=== PATIENT | female | born 1955 | race Caucasian/White ===

== ENCOUNTER 2017-05-31 21:49 | Inpatient (IN) | payer OTHER ==
[~2017-05-31] VITALS: Ht 152.4 cm; Wt 62.6 kg
--- NOTE | ~2017-05-31 | EKG ---
[address] [place] [address] ELECTROCARDIOGRAM REPORT Name: CHARLIE FERMIN Room #: 409-P ADM IN M.R.#: [id number] Admission: 06/01/17 Attend Phys: Virgilio Shepherd MD Discharge: Date of : 51 Report #: [id number] THIS REPORT FOR: //name// [facility] ED Test Date: 2017-05-31 Test Time: 22:56:05 Pat Name: CHARLIE FERMIN Department: Room: 409 Gender: F Composing Room Supervisor: ELSIE : 1955 Requested By: Shaye Granado Order Number: [id number] MD: Chris Morales Measurements Intervals [place] Rate: 77 P: 78 [place]: 165 QRS: -13 QRSD: 111 T: 3 QT: 408 QTc: 462 Interpretive Statements Sinus rhythm Low voltage, precordial leads Probable anteroseptal infarct, old Compared to ECG 05/14/2012 09:56:40 Septal Q waves are now present Sinus bradycardia no longer present Electronically Signed On 06-01-2017 7:55:03 CDT by Chris Morales [email or web address] <ELECTRONICALLY SIGNED> By: Chris Morales MD, [facility] 06/01/17 [id number] Chris Morales MD, [facility] /EPI
[~2017-05-31 21:49] MED LIST: IBUPROFEN 800800 M1 PO; LORTAB 5 MG/5001 TA1 PO; SENNA PO; TRAMADOL-ACETA1 EACH PO
[2017-05-31 21:53] VITALS: BP 105/75
[2017-05-31 22:26] LABS: ABSOLUTE NEUTROPHILS 5.4 thou/uL (1.4-8.2); BASOPHILS 0.2 % (0.0-2.0); EOSINOPHILS 0.1 % (0.0-3.0); HEMATOCRIT 43.5 % (37.0-47.0); HEMOGLOBIN 14.8 gm/dL (12.0-15.0); LYMPHOCYTES 22.7 % (24.0-44.0); MCH 30.4 pg (26.0-34.0); MCHC 34.1 g/dL (28.0-37.0); MCV 89.2 fL (80.0-100.0); MONOCYTES 9.4 % (1.0-8.0); PLATELET COUNT 271 thou/uL (150-400); POLYS 67.6 % (36.0-66.0); RBC 4.88 mil/uL (4.20-5.00); RDW 13.6 % (10.5-14.5); URINE BILIRUBIN 2+ (Negative); URINE BLOOD 2+ (Negative); URINE CLARITY SL CLOUDY; URINE COLOR YELLOW; URINE GLUCOSE-RANDOM* NEGATIVE (Negative); URINE KETONES 3+ (Negative); URINE LEUKOCYTES NEGATIVE (Negative); URINE NITRITE NEGATIVE (Negative); URINE PROTEIN (DIPSTICK) 2+ (Negative); URINE SPECIFIC GRAVITY >= 1.030 (1.005-1.035)
[2017-05-31 22:36] LABS: ICTOTEST (BILI CONFIRMATORY) Positive (Negative)
[2017-05-31 22:39] LABS: HYALINE CASTS 0-3 Few /LPF (None Seen); MUCUS 0-3 Light strn/LPF (None Seen); SQUAMOUS 0-3 Few /LPF (0-3); URINE RBC None Seen /HPF (0-2); URINE WBC None Seen /HPF (0-5)
[2017-05-31 22:40] LABS: BACTERIA None Seen /HPF (None Seen); CRYSTALS None Seen /LPF (None Seen)
[2017-05-31 22:48] LABS: ANION GAP 12 mmol/L (7-16); BUN 14 mg/dL (7-18); CALCIUM 9.2 mg/dL (8.5-10.1); CHLORIDE 98 mmol/L (98-107); CO2 24 mmol/L (21-32); CREATININE 0.8 mg/dL (0.6-1.0); GLUCOSE 116 mg/dL (74-106); POTASSIUM 3.3 mmol/L (3.5-5.1); SODIUM 134 mmol/L (136-145)
[2017-05-31 22:57] LABS: ALBUMIN 3.7 g/dL (3.4-5.0); DIRECT BILIRUBIN 0.2 mg/dL (<0.1-0.3); LIPASE 111 U/L (73-393); SGOT 50 U/L (15-37); SGPT 48 U/L (30-65); TOTAL BILIRUBIN 0.7 mg/dL (<0.1-1.0); TOTAL PROTEIN 8.3 g/dL (6.4-8.2); TROPONIN-I < 0.04 ng/mL (<0.06)
[2017-06-01] MEDS ORDERED: ZOFRAN ODT4 MG PO (00:06)
[2017-06-01] MEDS ORDERED: PHENERGAN 25 MG25 M1 PO (00:06)
[2017-06-01 00:53] VITALS: BP 116/62
[2017-06-01 01:15] VITALS: BP 129/67
[2017-06-01 04:00] VITALS: BP 115/71
[2017-06-01 09:03] LABS: HEMOGLOBIN 13.5 gm/dL (12.0-15.0); MCH 30.3 pg (26.0-34.0); MCHC 33.6 g/dL (28.0-37.0); RBC 4.45 mil/uL (4.20-5.00); RDW 13.2 % (10.5-14.5); WBC 7.2 thou/uL (4.0-11.0)
[2017-06-01 09:12] LABS: CALCIUM 8.6 mg/dL (8.5-10.1); CREATININE 0.7 mg/dL (0.6-1.0); MAGNESIUM 1.9 mg/dL (1.8-2.4); POTASSIUM 3.3 mmol/L (3.5-5.1)
[2017-06-01 09:30] VITALS: BP 107/58
[2017-06-01 14:50] VITALS: BP 99/44
[2017-06-01 20:00] VITALS: BP 110/50
[2017-06-02] VITALS: BP 107/54
[2017-06-02 04:00] VITALS: BP 105/69; BP 112/72
[2017-06-02 06:18] LABS: HEMATOCRIT 34.6 % (37.0-47.0); HEMOGLOBIN 11.7 gm/dL (12.0-15.0); MCH 30.3 pg (26.0-34.0); MCHC 33.9 g/dL (28.0-37.0); MCV 89.5 fL (80.0-100.0); RBC 3.87 mil/uL (4.20-5.00); RDW 13.4 % (10.5-14.5); WBC 8.5 thou/uL (4.0-11.0)
[2017-06-02 06:36] LABS: CALCIUM 7.8 mg/dL (8.5-10.1); CREATININE 0.7 mg/dL (0.6-1.0); POTASSIUM 3.3 mmol/L (3.5-5.1)
[2017-06-02 08:00] VITALS: BP 103/53
[2017-06-02 09:00] VITALS: BP 95/51
[2017-06-02 09:34] VITALS: BP 103/53
[2017-06-02 20:08] VITALS: BP 112/60
[2017-06-03 06:30] LABS: HEMATOCRIT 31.9 % (37.0-47.0); HEMOGLOBIN 11.1 gm/dL (12.0-15.0); MCH 30.9 pg (26.0-34.0); MCHC 34.8 g/dL (28.0-37.0); MCV 88.7 fL (80.0-100.0); RBC 3.59 mil/uL (4.20-5.00); RDW 13.6 % (10.5-14.5); WBC 8.3 thou/uL (4.0-11.0)
[2017-06-03 06:48] LABS: CALCIUM 8.3 mg/dL (8.5-10.1); CREATININE 0.7 mg/dL (0.6-1.0)
[2017-06-03 07:30] VITALS: BP 113/64
[2017-06-03] MEDS ORDERED: MUCINEX600 MG PO (09:44)
[2017-06-03] MEDS ORDERED: ONDANSETRON HCL4 M2 PO (09:45)
[2017-06-03] MEDS ORDERED: CEFDINIR300 MG PO (09:45)
[2017-06-03 10:40] VITALS: BP 113/64
[2017-06-04 00:07] LABS: ADENOVIRUS Negative (Negative); INFLUENZA A Negative (Negative); INFLUENZA B Positive (Negative); METAPNEUMOVIRUS Negative (Negative); PARAINFLUENZA 1 Negative (Negative); PARAINFLUENZA 2 Negative (Negative); PARAINFLUENZA 3 Negative (Negative); RHINOVIRUS Negative (Negative); RSV A Negative (Negative); RSV B Negative (Negative)
== END 2017-06-03 11:29 | disposition home or self-care (01) | DRG 391 ==
LOC: ER 21:49 → SICU 06-01 00:27 → EROBS 06-01 00:27 → 4N 06-01 00:55 → SICU 06-02 09:42
PROVIDERS: Emergency Medicine; Hospitalist; Nurse Practitioner Acute Care
DX: K52.9 Noninfective gastroenteritis and colitis, unspecified (principal); J18.9 Pneumonia, unspecified organism; F17.200 Nicotine dependence, unspecified, uncomplicated; E87.6 Hypokalemia; Z88.5 Allergy status to narcotic agent; Z79.1 Long term (current) use of non-steroidal anti-inflammatories (NSAID)
CPT/HCPCS: 10091; 15002

== ENCOUNTER 2018-10-26 19:19 | Emergency (ER) | payer OTHER ==
[~2018-10-26] VITALS: Ht 154.9 cm; Wt 63.5 kg
[~2018-10-26 19:19] MED LIST changes: +CEFDINIR300 MG PO; +MUCINEX600 MG PO; +ONDANSETRON HCL4 M2 PO; +PHENERGAN 25 MG25 M1 PO; +ZOFRAN ODT4 MG PO
[2018-10-26 19:54] LABS: ABSOLUTE NEUTROPHILS 10.5 thou/uL (1.4-8.2); BASOPHILS 0.2 % (0.0-2.0); EOSINOPHILS 0.3 % (0.0-3.0); HEMATOCRIT 43.5 % (37.0-47.0); HEMOGLOBIN 14.8 gm/dL (12.0-15.0); LYMPHOCYTES 11.6 % (24.0-44.0); MCH 30.8 pg (26.0-34.0); MCHC 34.1 g/dL (28.0-37.0); MCV 90.4 fL (80.0-100.0); MONOCYTES 8.8 % (1.0-8.0); PLATELET COUNT 313 thou/uL (150-400); POLYS 79.1 % (36.0-66.0); RBC 4.81 mil/uL (4.20-5.00); RDW 13.7 % (10.5-14.5); WBC 13.3 thou/uL (4.0-11.0)
[2018-10-26 19:59] LABS: CALCIUM 9.5 mg/dL (8.5-10.1); POTASSIUM 3.4 mmol/L (3.5-5.1)
[2018-10-26 20:06] LABS: DIRECT BILIRUBIN 0.1 mg/dL (<0.1-0.3); TOTAL BILIRUBIN 0.9 mg/dL (<0.1-1.0); TOTAL PROTEIN 7.9 g/dL (6.4-8.2)
[2018-10-26 22:30] LABS: URINE BILIRUBIN 1+ (Negative); URINE BLOOD TRACE (Negative); URINE CLARITY SL CLOUDY; URINE COLOR YELLOW; URINE GLUCOSE-RANDOM* NEGATIVE (Negative); URINE KETONES 1+ (Negative); URINE LEUKOCYTES-REFLEX NEGATIVE (Negative); URINE NITRITE-REFLEX NEGATIVE (Negative); URINE PROTEIN (DIPSTICK) NEGATIVE (Negative); URINE SPECIFIC GRAVITY >= 1.030 (1.005-1.035); URINE UROBILINOGEN 0.2 E.U./dl (0.2-1.0)
[2018-10-26] MEDS ORDERED: BENTYL 20 MG TA20 M1 PO (23:55)
[2018-10-26] MEDS ORDERED: ZOFRAN4 MG PO (23:55)
[2018-10-27 00:10] VITALS: BP 106/58
== END 2018-10-27 00:10 | disposition home or self-care (01) ==
LOC: ER 19:19
PROVIDERS: Emergency Medicine
DX: R10.10 Upper abdominal pain, unspecified (principal); R11.2 Nausea with vomiting, unspecified; R19.7 Diarrhea, unspecified; F17.210 Nicotine dependence, cigarettes, uncomplicated; Z88.5 Allergy status to narcotic agent; Z90.49 Acquired absence of other specified parts of digestive tract